=== PATIENT | female | born 1930 | race Caucasian/White ===

== ENCOUNTER → 2017-04-04 | Outpatient (CLI) | payer MEDICARE ==
[~2017-04-04] MED LIST: CALC1CAP8 PO; GLIM2TAB2 PO; GLUC1CAP48 PO; IRON PO; LANS15CA5 PO; LEVO50TA5 PO; LOSA50TA6 PO; PARO20TA4 PO; PRAV10TA2 PO; TRAV5DRO LEFTEYE; VITA100022 PO; VITAMIN D PO
== END | disposition home or self-care (01) ==
LOC: CFH 12:35
PROVIDERS: ATTEND Internal Medicine Hematology & Oncology
DX: Z12.31 Encounter for screening mammogram for malignant neoplasm of breast (principal)
CPT/HCPCS: G0202

== ENCOUNTER → 2017-10-28 | Outpatient (CLI) | payer MEDICARE | END | disposition home or self-care (01) | LOC: CFH 14:39 | PROVIDERS: ATTEND Internal Medicine Hematology & Oncology | DX: Z13.820 Encounter for screening for osteoporosis (principal); C50.311 Malignant neoplasm of lower-inner quadrant of right female breast; M85.89 Other specified disorders of bone density and structure, multiple sites | CPT/HCPCS: 77080 ==

== ENCOUNTER → 2018-04-15 | Outpatient (CLI) | payer MEDICARE ==
[~2018-04-15] MED LIST changes: -LOSA50TA6 PO; +LOSA50TA7 PO
== END | disposition home or self-care (01) ==
LOC: CFH 11:29
PROVIDERS: ATTEND Family Medicine
DX: Z12.31 Encounter for screening mammogram for malignant neoplasm of breast (principal); Z85.3 Personal history of malignant neoplasm of breast
CPT/HCPCS: 77067

== ENCOUNTER → 2018-08-07 | Outpatient (CLI) | payer MEDICARE ==
[~2018-08-07] MED LIST changes: +LOSA50TA14 PO; -LOSA50TA7 PO
== END | disposition home or self-care (01) ==
LOC: CFH 10:52
PROVIDERS: ATTEND Family Medicine
DX: R05 Cough (principal)
CPT/HCPCS: 71046

== ENCOUNTER → 2019-04-28 | Outpatient (CLI) | payer MEDICARE ==
[~2019-04-28] MED LIST changes: -GLIM2TAB2 PO; +GLIM2TAB3 PO
== END | disposition home or self-care (01) ==
LOC: CFH 10:55
PROVIDERS: ATTEND Family Medicine
DX: Z12.31 Encounter for screening mammogram for malignant neoplasm of breast (principal); Z85.3 Personal history of malignant neoplasm of breast
CPT/HCPCS: 77067

== ENCOUNTER 2020-12-05 12:02 | Inpatient (IN) | payer MEDICARE ==
[~2020-12-05] VITALS: Ht 157.5 cm; Wt 56.0 kg
[~2020-12-05 12:02] MED LIST changes: -GLIM2TAB3 PO; +GLIM2TAB7 PO
[2020-12-05 12:37] LABS: BASOPHILS % (AUTO) 0 % (0-1); EOSINOPHILS % (AUTO) 0 % (1-7); LYMPHOCYTES % (AUTO) 8 % (22-44); MEAN CORPUSCULAR HEMOGLOBIN 28.9 pg (27.0-34.8); MEAN CORPUSCULAR HGB CONC 33.2 g/dL (32.4-35.8); MEAN PLATELET VOLUME 7.7 fL (7.4-10.4); MONOCYTES % (AUTO) 10 % (2-9); NEUTROPHILS % (AUTO) 82 % (42-75); PLATELET COUNT 239 x10^3/uL (130-400); RED CELL DISTRIBUTION WIDTH 13.7 % (9.6-15.2)
[2020-12-05 12:49] LABS: ALANINE AMINOTRANSFERASE 14 U/L (12-78); ANION GAP 11 mmol/L (5-15); CALCIUM 8.7 mg/dL (8.5-10.1); CHLORIDE 94 mmol/L (98-107)
[2020-12-05 12:51] LABS: ALKALINE PHOSPHATASE 68 U/L (45-117); CREATININE 1.09 mg/dL (0.55-1.02); TOTAL PROTEIN 6.9 g/dL (6.4-8.2)
--- NOTE | 2020-12-05 15:48 | NUR ---
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
[2020-12-05] MEDS ORDERED: LATA7.5D OP (16:49)
[2020-12-05] MEDS ORDERED: FERR324T5 PO (16:49)
[2020-12-05] MEDS ORDERED: AMLO-150 PO (16:49)
[2020-12-05] MEDS ORDERED: LOVA20TA2 PO (16:49)
[2020-12-05] MEDS ORDERED: METF500T17 PO (16:49)
[2020-12-05] MEDS ORDERED: MIRT-15 PO (16:49)
[2020-12-05] MEDS ORDERED: ASPI-963 PO (16:49)
[2020-12-05] MEDS ORDERED: CHOL10003 PO (16:50)
[2020-12-05] MEDS ORDERED: JOINT ADVANTAGE GOLD PO (16:51)
[2020-12-05] MEDS ORDERED: L.AC1CAP6 PO (16:51)
--- NOTE | 2020-12-05 17:56 | NUR ---
IV STARTED. BLOOD CULTURES DRAWN BY LAB. PT AWARE SHE IS BEING ADMITTED. WILL CONTINUE TO MONITOR. PT FAMILY MARINE IN EXTRA DIAPERS FOR PT. AWAITING STRAIGHT CATH KITS FROM [facility] THEY ARE UNAVAILABLE ON UNIT AT THIS TIME.
[2020-12-05] MEDS ORDERED: SODIUM CHLORIDE 0.9% 1,000 ML IV ONE (18:00)
[2020-12-05] MEDS ORDERED: CEFTRIAXONE 1,000 MG in DEXTROSE 5% 50 ML IVPB ONE (18:00)
[2020-12-05] MEDS ORDERED: DEXTROSE 50%, 50ML SYRINGE IVPush PRN (18:30)
[2020-12-05] MEDS ORDERED: GLUCAGON 1 MG IM PRN (18:30)
[2020-12-05] MEDS ORDERED: ACETAMINOPHEN 325 MG TABLET PO PRN (18:30)
[2020-12-05] MEDS ORDERED: ENOXAPARIN 40 MG/0.4 ML SQ SCH (18:30)
[2020-12-05] MEDS ORDERED: SODIUM CHLORIDE FLUSH 10ML SYR IVF ONE (18:30)
[2020-12-05] MEDS ORDERED: METRONIDAZOLE PMX 500MG/100ML 100 ML IV ONE (18:30)
[2020-12-05] MEDS ORDERED: PHARMACY MAY ADJ FOR RENAL FX MC PRN (18:30)
[2020-12-05] MEDS ORDERED: DEXTROSE 4 GM TAB.CHEW PO PRN (18:30)
[2020-12-05] MEDS ORDERED: ONDANSETRON 2MG/ML, 2ML IVPush PRN (18:30)
--- NOTE | 2020-12-05 19:30 | NUR ---
REPORT TO NEETU GRAVES
[2020-12-05] MEDS: SODIUM CHLORIDE FLUSH 10ML SYR IVF SCH (21:00)
[2020-12-05] MEDS: SODIUM CHLORIDE 0.9% 1,000 ML IV SCH (22:28)
[2020-12-05] MEDS ORDERED: PAXIL MC SCH (22:30)
[2020-12-06] MEDS ORDERED: METRONIDAZOLE PMX 500MG/100ML 100 ML IV ONE
[2020-12-06] MEDS ORDERED: CEFTRIAXONE 1,000 MG in DEXTROSE 5% 50 ML IVPB ONE
[2020-12-06] MEDS: INSULIN LISPRO 100 UNITS/ML, PEN SQ-INSULIN SCH ×5 (00:02→20:28)
[2020-12-06] MEDS: FERROUS SULFATE 325 MG TABLET PO SCH (00:03)
[2020-12-06 02:24] VITALS: BP 114/56
[2020-12-06] MEDS: SODIUM CHLORIDE 0.9% 1,000 ML IV SCH ×2 (05:29→11:13)
[2020-12-06 06:27] LABS: MICROSCOPIC NOT IND
[2020-12-06 08:00] VITALS: BP 132/78
[2020-12-06] MEDS: CHOLECALCIFEROL 1,000 UNIT TABLET PO SCH (08:14)
[2020-12-06] MEDS: ASPIRIN 81 MG TABLET EC PO SCH (08:14)
[2020-12-06] MEDS: PANTOPRAZOLE 40MG TABLET PO SCH (08:15)
[2020-12-06] MEDS: LEVOTHYROXINE 25 MCG TABLET PO SCH (08:16)
[2020-12-06] MEDS: SODIUM CHLORIDE FLUSH 10ML SYR IVF SCH ×2 (08:24→20:25)
[2020-12-06 09:20] LABS: BASOPHILS % (AUTO) 0 % (0-1); EOSINOPHILS % (AUTO) 0 % (1-7); LYMPHOCYTES % (AUTO) 10 % (22-44); MEAN CORPUSCULAR HEMOGLOBIN 28.6 pg (27.0-34.8); MEAN CORPUSCULAR HGB CONC 32.7 g/dL (32.4-35.8); MEAN PLATELET VOLUME 7.7 fL (7.4-10.4); MONOCYTES % (AUTO) 11 % (2-9); NEUTROPHILS % (AUTO) 79 % (42-75); PLATELET COUNT 228 x10^3/uL (130-400); RED BLOOD COUNT 4.35 x10^6/uL (3.82-5.3); RED CELL DISTRIBUTION WIDTH 13.6 % (9.6-15.2)
[2020-12-06 09:36] LABS: ALBUMIN 2.6 g/dL (3.4-5.0); ANION GAP 5 mmol/L (5-15); CALCIUM 8.5 mg/dL (8.5-10.1); CHLORIDE 109 mmol/L (98-107)
[2020-12-06 09:40] LABS: ALANINE AMINOTRANSFERASE 11 U/L (12-78); ALKALINE PHOSPHATASE 62 U/L (45-117); BILIRUBIN,TOTAL 0.4 mg/dL (0.2-1.0); CREATININE 0.97 mg/dL (0.55-1.02); TOTAL PROTEIN 6.2 g/dL (6.4-8.2)
[2020-12-06] MEDS: MIRTAZAPINE 30 MG TABLET PO SCH (11:11)
[2020-12-06] MEDS: PAROXETINE 20 MG TABLET PO SCH (11:11)
[2020-12-06 13:52] VITALS: BP 130/57
[2020-12-06 20:51] VITALS: BP 122/70
[2020-12-06] MEDS ORDERED: ENOXAPARIN 30 MG/0.3 ML SQ SCH (22:30)
[2020-12-06] MEDS ORDERED: ENOXAPARIN 40 MG/0.4 ML SQ SCH (22:30)
[2020-12-06] MEDS: LATANOPROST OPHTH 0.005%, 2.5ML OP SCH (23:30)
[2020-12-07 01:53] VITALS: BP 145/74
[2020-12-07 06:50] VITALS: BP 132/60
[2020-12-07] MEDS: INSULIN LISPRO 100 UNITS/ML, PEN SQ-INSULIN SCH (07:00)
[2020-12-07] MEDS: CHOLECALCIFEROL 1,000 UNIT TABLET PO SCH (09:02)
[2020-12-07] MEDS: MIRTAZAPINE 30 MG TABLET PO SCH (09:02)
[2020-12-07] MEDS: LEVOTHYROXINE 25 MCG TABLET PO SCH (09:02)
[2020-12-07] MEDS: PANTOPRAZOLE 40MG TABLET PO SCH (09:02)
[2020-12-07] MEDS: FERROUS SULFATE 325 MG TABLET PO SCH (09:02)
[2020-12-07] MEDS: ASPIRIN 81 MG TABLET EC PO SCH (09:02)
[2020-12-07 09:03] LABS: ANION GAP 7 mmol/L (5-15); CALCIUM 8.5 mg/dL (8.5-10.1); CHLORIDE 113 mmol/L (98-107); CREATININE 0.89 mg/dL (0.55-1.02)
[2020-12-07] MEDS: PAROXETINE 20 MG TABLET PO SCH (09:03)
[2020-12-07] MEDS: SODIUM CHLORIDE FLUSH 10ML SYR IVF SCH (09:03)
[2020-12-07] MEDS: LATANOPROST OPHTH 0.005%, 2.5ML OP SCH (09:03)
[2020-12-07 10:42] LABS: BASOPHILS % (AUTO) 0 % (0-1); EOSINOPHILS % (AUTO) 0 % (1-7); LYMPHOCYTES % (AUTO) 8 % (22-44); MEAN CORPUSCULAR HEMOGLOBIN 28.8 pg (27.0-34.8); MEAN CORPUSCULAR HGB CONC 32.7 g/dL (32.4-35.8); MEAN PLATELET VOLUME 8.3 fL (7.4-10.4); MONOCYTES % (AUTO) 8 % (2-9); NEUTROPHILS % (AUTO) 83 % (42-75); PLATELET COUNT 221 x10^3/uL (130-400); RED BLOOD COUNT 4.34 x10^6/uL (3.82-5.3); RED CELL DISTRIBUTION WIDTH 14.1 % (9.6-15.2)
== END 2020-12-07 13:00 | disposition home or self-care (01) | DRG 392 ==
LOC: SUATTDRO 17:38 → ED 19:55 → EDIP 22:01 → 3N 22:07
PROVIDERS: ADMIT Internal Medicine; ATTEND Family Medicine
PROC: 0T9B70Z Drainage of Bladder with Drainage Device, Via Natural or Artificial Opening (ICD-10-PCS; principal; 2020-12-06)
DX: K52.9 Noninfective gastroenteritis and colitis, unspecified (principal); E87.1 Hypo-osmolality and hyponatremia; E86.0 Dehydration; E11.65 Type 2 diabetes mellitus with hyperglycemia; E03.9 Hypothyroidism, unspecified; E78.5 Hyperlipidemia, unspecified; E86.1 Hypovolemia; E88.09 Other disorders of plasma-protein metabolism, not elsewhere classified; Z20.822 Contact with and (suspected) exposure to COVID-19; F32.9 Major depressive disorder, single episode, unspecified; H40.9 Unspecified glaucoma; I10 Essential (primary) hypertension; Z85.038 Personal history of other malignant neoplasm of large intestine; Z90.49 Acquired absence of other specified parts of digestive tract; Z88.5 Allergy status to narcotic agent
CPT/HCPCS: 36415; 74022; 80048; 80053; 81003; 82962; 83036; 83605; 83690; 84443; 85025; 87040; 96374; 96375; G0378; J0696; J1650; U0005; J1815; J7030; U0003

== ENCOUNTER 2020-12-22 09:23 | Outpatient (CLI) | payer MEDICARE ==
[~2020-12-22 09:23] MED LIST changes: +AMLO-150 PO; +ASPI-963 PO; +CHOL10003 PO; +FERR324T5 PO; +JOINT ADVANTAGE GOLD PO; +L.AC1CAP6 PO; +LATA7.5D OP; +LOVA20TA2 PO; +METF500T17 PO; +MIRT-15 PO
[2020-12-22] MEDS ORDERED: OMNIPAQUE 350 MG/ML, 100ML BOTTLE ONE (11:27)
== END 2020-12-22 23:59 | disposition home or self-care (01) ==
LOC: CFH 09:23 → RAD 23:59
PROVIDERS: ATTEND Internal Medicine Gastroenterology
DX: K44.9 Diaphragmatic hernia without obstruction or gangrene (principal); K57.30 Diverticulosis of large intestine without perforation or abscess without bleeding; R63.4 Abnormal weight loss; K21.9 Gastro-esophageal reflux disease without esophagitis
CPT/HCPCS: 71046; 74177; Q9967